=== PATIENT | female | born 1955 | race Caucasian/White ===

== ENCOUNTER → 2020-06-01 | Outpatient (CLI) | payer MEDICARE ==
[2015-08-29 23:51] VITALS: BP 128/91
[~2020-06-01] MED LIST: ONDA4TAB12 PO
--- NOTE | 2020-06-02 17:51 | RAD ---
DATE: 06/01/2020 10:45 AM EXAM: MAMMO LILLIAN SCREENING BILATERAL HISTORY: Screening COMPARISON: 03/13/2018 Bilateral CC and MLO views of the breasts were performed. Bilateral breast tomosynthesis was performed in CC and MLO projections. This study was interpreted with the benefit of Computerized Aided Detection (CAD). FINDINGS: Breast Density: SCATTERED The breast parenchyma shows scattered fibroglandular densities. Breast parenchyma level B No suspicious masses, microcalcifications or architectural distortion is present to suggest malignancy in either breast. The visualized axillae are unremarkable. IMPRESSION: No mammographic evidence of malignancy. BI-RADS CATEGORY: 1 NEGATIVE RECOMMENDED FOLLOW-UP: 12M 12 MONTH FOLLOW-UP Annual screening mammography is recommended, unless clinically indicated sooner based on symptoms or change in physical exam. PQRS compliance statement: Patient information was entered into a reminder system with a target due date for the next mammogram. Mammography is a sensitive method for finding small breast cancers, but it does not detect them all and is not a substitute for careful clinical examination. A negative mammogram does not negate a clinically suspicious finding and should not result in delay in biopsying a clinically suspicious abnormality. "Our facility is accredited by the [employer] Mammography [employer]."
== END | disposition home or self-care (01) ==
LOC: MAMMO 10:40
PROVIDERS: ATTEND Nurse Practitioner Family
DX: Z12.31 Encounter for screening mammogram for malignant neoplasm of breast (principal)
CPT/HCPCS: 77063; 77067

== ENCOUNTER → 2020-09-01 | Outpatient (CLI) | payer MEDICARE ==
[2015-08-29 23:51] VITALS: BP 128/91
--- NOTE | 2020-09-03 17:25 | RAD ---
BONE DENSITY AXIAL History: Reason: MENOPAUSE / Spl. Instructions: / History: TECHNIQUE: Dual energy x-ray absorptiometry of the lumbar spine and right femur was performed. T-score of average bone mineral density based was calculated based on standard deviations above or below the expected young adult normal value. Diagnostic definitions were established by the World [employer] Organization. FINDINGS: The average bone mineral density associated with L1-L4 is 0.906 g/cm^2, corresponding with a T-score of -2.3. The average total bone mineral density associated with right femur is 0.709 g/cm^2, corresponding with a T-score of -2.0. No comparison examinations are available. Refer to the worksheets for full detail. IMPRESSION: 1. Osteopenia according to the lumbar spine and right femur. Average bone mineral density yields a T-score between -1.0 and -2.5. Fracture risk is increased. Electronically signed by: Kaiden Robison DO (09/03/2020 5:22 PM) [id number]
== END ==
LOC: DXRAD 10:01
PROVIDERS: ATTEND Family Medicine
DX: Z78.0 Asymptomatic menopausal state (principal); M85.88 Other specified disorders of bone density and structure, other site
CPT/HCPCS: 77080

== ENCOUNTER → 2021-07-08 | Outpatient (CLI) | payer MEDICARE ==
[2015-08-29 23:51] VITALS: BP 128/91
--- NOTE | 2021-07-08 13:29 | RAD ---
EXAM: Bilateral digital screening mammogram with tomosynthesis. HISTORY: 66-year-old female presents for screening mammography. TECHNIQUE: Full-field digital craniocaudal and mediolateral oblique 2D and 3D tomosynthesis images of both breasts are obtained for evaluation. Computer aided detection was applied. COMPARISON: 06/01/2020 BREAST PARENCHYMAL DENSITY: Level B - Scattered fibroglandular densities. FINDINGS: There is no new suspicious mass, microcalcification or region of architectural distortion. There is stable benign areas of asymmetry and nodularity within both breasts. There are a few benign calcifications. IMPRESSION: BI-RADS Category 2: Benign finding(s). RECOMMENDATION: Annual mammography is recommended. If your mammogram demonstrates that you have dense breast tissue, which could hide abnormalities, and if you have other risk factors for breast cancer that have been identified, you might benefit from s upplemental screening tests that may be suggested by your ordering physician. Dense breast tissue, i n and of itself, is a relatively common condition. This information is not provided to cause undue c oncern, but rather to raise your awareness and to promote discussion with your physician regarding th e presence of other risk factors, in addition to dense breast tissue. A report of your mammography re sults will be sent to you and your physician. You should contact your physician if you have any ques tions or concerns regarding this report. Mammography is a sensitive method for finding small breast cancers, but it does not detect them all a nd is not a substitute for careful clinical examination. A negative mammogram does not negate a clin ically suspicious finding and should not result in delay in biopsying a clinically suspicious abnorma lity. PQRS compliance statement - Patient information was entered into a reminder system with a target due date for the next mammogram. "Our facility is accredited by the [employer] Mammography [employer]." Electronically signed by: Tomeka Thompson MD (07/08/2021 1:26 PM) [id number]
== END ==
LOC: MAMMO 11:14
PROVIDERS: ATTEND Family Medicine
DX: Z12.31 Encounter for screening mammogram for malignant neoplasm of breast (principal); R92.1 Mammographic calcification found on diagnostic imaging of breast
CPT/HCPCS: 77063; 77067